=== PATIENT | male | born 1980 | race Caucasian/White ===

== ENCOUNTER 2018-06-26 03:25 | Emergency (ER) | payer OTHER ==
--- NOTE | 2018-06-26 03:38 | EDM.PDOC ---
ED HPI GENERAL MEDICAL PROBLEM - General Chief Complaint: Chest Pain Stated Complaint: CHEST PAIN Time Seen by Provider: 06/26/18 03:38 Source of Information: Reports: Patient - History of Present Illness INITIAL COMMENTS - FREE TEXT/NARRATIVE: HISTORY AND PHYSICAL: History of present illness: [Patient presents with chief complaint of chest pain Patient has had cough for 1 week increasing in severity coughing and felt lightheaded see spots near the vomiting, keeping him awake at night tonight he has burning chest pain worsened by cough rates 5 out of 10 nonradiating no radiation arm neck or jaw no diaphoresis. He has been treated at [facility] 5 days prior with amoxicillin, with no benefit No fever nausea vomiting chills sweats no shortness of breath headache dizziness or palpitation at current Pain is resolved describes the pain as lung pain worsened by cough initially patient had diminished breath sounds resolved with DuoNeb and Solu- Medrol Review of systems: As per history of present illness and below otherwise all systems reviewed and negative. Past medical history: As per history of present illness and as reviewed below otherwise noncontributory. Surgical history: As per history of present illness and as reviewed below otherwise noncontributory. Social history: No reported history of drug or alcohol abuse. Family history: As per history of present illness and as reviewed below otherwise noncontributory. Physical exam: HEENT: Atraumatic, normocephalic, pupils reactive, negative for conjunctival pallor or scleral icterus, mucous membranes moist, throat clear, neck supple, nontender, trachea midline. Lungs: Clear to auscultation, breath sounds equal bilaterally, chest nontender. posterior DuoNeb and Solu-Medrol Heart: S1S2, regular, negative for clicks, rubs, or JVD. Abdomen: Soft, nondistended, nontender. Negative for masses or hepatosplenomegaly. Negative for costovertebral tenderness. Pelvis: Stable nontender. Genitourinary: Deferred. Rectal: Deferred. Extremities: Atraumatic, negative for cords or calf pain. Neurovascular unremarkable. Neuro: Awake, alert, oriented. Cranial nerves II through XII unremarkable. Cerebellum unremarkable. Motor and sensory unremarkable throughout. Exam nonfocal. Diagnostics: [CBC CMP lipase troponin EKG Chest 1 view ] Therapeutics: [ normal saline Aspirin 324 mg chewable DuoNeb Proton X ] Z-Bertin Prednisone HFA Impression: [ pharyngitis Bronchitis ] Slight infiltrate on chest x-ray will follow radiology interpretation Definitive disposition and diagnosis as appropriate pending reevaluation and review of above. chest pain Pain Score (Numeric/FACES): 3 - Related Data Allergies Allergy/AdvReac Type Severity Reaction Status Date / Time No Known Allergies Allergy Verified 06/26/18 03:29 Home Meds: Home Meds Amoxicillin 1 tab PO BID 06/26/18 [History] Past Medical History HEENT History: Reports: None Cardiovascular History: Reports: None Respiratory History: Reports: None Gastrointestinal History: Reports: None Genitourinary History: Reports: None Musculoskeletal History: Reports: None Neurological History: Reports: None Psychiatric History: Reports: None Endocrine/Metabolic History: Reports: None Hematologic History: Reports: None Immunologic History: Reports: None Oncologic (Cancer) History: Reports: None Dermatologic History: Reports: None - Infectious Disease History Infectious Disease History: Reports: None - Past Surgical History Head Surgeries/Procedures: Reports: None Social & Family History - Family History Family Medical History: Noncontributory - Tobacco Use Smoking Status *Q: Former Smoker Used Tobacco, but Quit: No - Caffeine Use Caffeine Use: Reports: Energy Drinks - Recreational Drug Use Recreational Drug Use: No ED ROS GENERAL - Review of Systems Review Of Systems: See Below ED EXAM, GENERAL - Physical Exam Exam: See Below Course - Vital Signs Last Recorded V/S: Last Vital Signs Temp 97.1 F 06/26/18 03:30 Pulse 88 06/26/18 03:30 Resp 18 06/26/18 03:30 BP 108/60 06/26/18 03:30 Pulse Ox 96 06/26/18 03:30 - Orders/Labs/Meds Orders: Active Orders 24 hr Category Date Time Status EKG Documentation Completion [RC] STAT Care 06/26/18 03:41 Active RT Aerosol Therapy [RC] ASDIRECTED Care 06/26/18 03:41 Active Labs: Laboratory Tests 06/26/18 06/26/18 Range/Units 03:55 03:55 WBC 10.92 (4.0-11.0) K/uL RBC 5.21 (4.50-5.90) M/uL Hgb 15.0 (13.0-17.0) g/dL Hct 42.1 (38.0-50.0) % MCV 80.8 (80.0-98.0) fL MCH 28.8 (27.0-32.0) pg MCHC 35.6 (31.0-37.0) g/dL RDW Std Deviation 38.4 (28.0-62.0) fl RDW Coeff of James 13 (11.0-15.0) % Plt Count 191 (150-400) K/uL MPV 9.50 (7.40-12.00) fL Neut % (Auto) 70.0 (48.0-80.0) % Lymph % (Auto) 15.3 L (16.0-40.0) % [place] % (Auto) 9.4 (0.0-15.0) % Eos % (Auto) 4.9 (0.0-7.0) % Baso % (Auto) 0.4 (0.0-1.5) % Neut # (Auto) 7.6 H (1.4-5.7) K/uL Lymph # (Auto) 1.7 (0.6-2.4) K/uL [place] # (Auto) 1.0 H (0.0-0.8) K/uL Eos # (Auto) 0.5 (0.0-0.7) K/uL Baso # (Auto) 0.0 (0.0-0.1) K/uL Nucleated RBC % 0.0 /100WBC Nucleated RBCs # 0 K/uL Sodium 144 (136-148) mmol/L Potassium 3.7 (3.5-5.1) mmol/L Chloride 108 H (98-107) mmol/L Carbon Dioxide 22.6 (21.0-32.0) mmol/L BUN 15 (7.0-18.0) mg/dL Creatinine 1.2 (0.8-1.3) mg/dL Est Cr Clr Drug Dosing 83.47 mL/min Estimated GFR (MDRD) > 60.0 ml/min Glucose 123 H (74-106) mg/dL Calcium 8.2 L (8.5-10.1) mg/dL Total Bilirubin 0.2 (0.2-1.0) mg/dL AST 21 (15-37) IU/L ALT 39 (14-63) IU/L Alkaline Phosphatase 89 (46-116) U/L Troponin I < 0.050 (0.000-0.056) ng/mL Total Protein 6.7 (6.4-8.2) g/dL Albumin 3.5 (3.4-5.0) g/dL Globulin 3.2 (2.6-4.0) g/dL Albumin/Globulin Ratio 1.1 (0.9-1.6) Lipase 184 (73-393) U/L Meds: Medications Discontinued Medications Generic Name Dose Route Start Last Admin Trade Name Hernán PRN Reason Stop Dose Admin Albuterol/Ipratropium 3 ml 06/26/18 03:41 06/26/18 04:04 Duoneb 3.0-0.5 Mg/3 Ml NEB 06/26/18 03:42 3 ml ONETIME ONE Administration Aspirin 324 mg 06/26/18 03:41 06/26/18 04:03 Aspirin PO 06/26/18 03:42 324 mg ONETIME ONE Administration Sodium Chloride 1,000 mls @ 999 mls/hr 06/26/18 03:41 06/26/18 04:03 Normal Saline IV 06/26/18 04:41 999 mls/hr STAT ONE Administration Methylprednisolone Sodium Succinate 125 mg 06/26/18 03:50 06/26/18 04:03 Solu-Medrol IVPUSH 06/26/18 03:51 125 mg ONETIME ONE Administration Pantoprazole Sodium 80 mg 06/26/18 03:41 06/26/18 04:05 Protonix Iv IVPUSH 06/26/18 03:42 Not Given .BOLUS ONE Departure - Departure Time of Disposition: 05:08 Disposition: Home, Self-Care 01 Condition: Good Clinical Impression: Bronchitis, Pulmonary infiltrate on chest x-ray - Discharge Information Forms: ED Department Discharge Additional Instructions: The following information is given to patients seen in the emergency department who are being discharged to home. This information is to outline your options for follow-up care. We provide all patients seen in our emergency department with a follow-up referral. The need for follow-up, as well as the timing and circumstances, are variable depending upon the specifics of your emergency department visit. If you don't have a primary care physician on staff, we will provide you with a referral. We always advise you to contact your personal physician following an emergency department visit to inform them of the circumstance of the visit and for follow-up with them and/or the need for any referrals to a consulting specialist. The emergency department will also refer you to a specialist when appropriate. This referral assures that you have the opportunity for follow-up care with a specialist. All of these measure are taken in an effort to provide you with optimal care, which includes your follow-up. Under all circumstances we always encourage you to contact your private physician who remains a resource for coordinating your care. When calling for follow-up care, please make the office aware that this follow-up is from your recent emergency room visit. If for any reason you are refused follow-up, please contact the [facility] emergency department at and asked to speak to the emergency department charge nurse. - My Orders Last 24 Hours: My Active Orders 06/26/18 03:41 EKG Documentation Completion [RC] STAT RT Aerosol Therapy [RC] ASDIRECTED - Assessment/Plan Last 24 Hours: My Active Orders 06/26/18 03:41 EKG Documentation Completion [RC] STAT RT Aerosol Therapy [RC] ASDIRECTED
[2018-06-26] MEDS ORDERED: Aspirin 81 MG Tab.Chew PO ONE (03:41)
[2018-06-26] MEDS ORDERED: Pantoprazole 40 MG Vial IVPUSH ONE (03:41)
[2018-06-26] MEDS ORDERED: Sodium Chloride 0.9% 1,000 ML IV ONE (03:41)
[2018-06-26] MEDS ORDERED: Albuterol/Ipratropium 3.0-0.5 MG/3 ML Neb Soln NEB ONE (03:41)
[2018-06-26] MEDS ORDERED: methylPREDNISolone Sodium Succinate 125 MG/2 ML SDV IVPUSH ONE (03:50)
--- NOTE | 2018-06-26 04:22 | CR ---
INDICATION: Chest pain, shortness of breath TECHNIQUE: Chest radiograph 1 view COMPARISON: None FINDINGS: Moderate degradation of image quality noted due to body habitus. Mediastinum: The mediastinum is normal in appearance. The heart silhouette is normal in size and morphology. Lung: Mild bibasilar atelectasis and small lung volumes are noted. No sign of pleural effusion seen. No pneumothorax is identified. Musculoskeletal: Unremarkable for age. IMPRESSION: 1. Mild bibasilar atelectasis and small lung volumes are noted. Dictated by Krzysztof Torres MD @ 06/26/2018 4:21:36 AM Dictated by: Krzysztof Torres MD @ 06/26/2018 04:21:40 (Electronically Signed)
[2018-06-26 04:43] LABS: CHLORIDE,CL 108 mmol/L (98-107); SODIUM,NA 144 mmol/L (136-148)
== END 2018-06-26 05:21 | disposition home or self-care (01) ==
LOC: MW.ED 03:25
DX: J40 Bronchitis, not specified as acute or chronic (principal); J02.9 Acute pharyngitis, unspecified; R91.8 Other nonspecific abnormal finding of lung field; Z87.891 Personal history of nicotine dependence
CPT/HCPCS: 36415; 71045; 80053; 83690; 84484; 85025; 87804; 93005; 94640; 96361; 96374; 99285; A9270; J2930; J7040; J7620-GY